=== PATIENT | male | born 1945 | race Caucasian/White ===

== ENCOUNTER → 2017-03-19 | Outpatient (CLI) | payer MEDICARE ==
[~2017-03-19] MED LIST: ASPI-515 PO; CHOL100012 PO; METF850T2 PO; MULT-516 PO; PRAV20TA2 PO
== END | disposition home or self-care (01) ==
LOC: RAD 15:49
PROVIDERS: ATTEND Urology
DX: K59.00 Constipation, unspecified (principal)
CPT/HCPCS: 74000

== ENCOUNTER → 2017-10-22 | Outpatient (CLI) | payer MEDICARE | END | disposition home or self-care (01) | LOC: RAD 10:12 | PROVIDERS: ATTEND Urology | DX: N20.0 Calculus of kidney (principal) | CPT/HCPCS: 74018 ==

== ENCOUNTER → 2018-08-24 | Outpatient (CLI) | payer MEDICARE ==
[~2018-08-24] MED LIST changes: +METF850T10 PO; -METF850T2 PO
== END | disposition home or self-care (01) ==
LOC: CFH 13:56
PROVIDERS: ATTEND Internal Medicine Cardiovascular Disease
DX: I08.1 Rheumatic disorders of both mitral and tricuspid valves (principal); E78.5 Hyperlipidemia, unspecified; I12.9 Hypertensive chronic kidney disease with stage 1 through stage 4 chronic kidney disease, or unspecified chronic kidney disease; E11.22 Type 2 diabetes mellitus with diabetic chronic kidney disease; N18.9 Chronic kidney disease, unspecified
CPT/HCPCS: 93306

== ENCOUNTER 2019-04-16 07:02 | Outpatient (CLI) | payer MEDICARE ==
[2019-04-16] MEDS ORDERED: REGADENOSON 0.4 MG/5 ML SYRINGE ONE (07:26)
== END 2019-04-16 23:59 | disposition home or self-care (01) ==
LOC: CFH 07:02
PROVIDERS: ATTEND Registered Nurse
DX: I08.8 Other rheumatic multiple valve diseases (principal); E11.9 Type 2 diabetes mellitus without complications
CPT/HCPCS: 78452; 93017; 93306; A9502; J2785

== ENCOUNTER 2019-06-25 08:27 | Day surgery (SDC) | payer MEDICARE ==
[~2019-06-25] VITALS: Ht 179.1 cm; Wt 75.0 kg
[2019-06-25 09:32] VITALS: BP 128/73
[2019-06-25] MEDS ORDERED: SITA25TA PO (09:41)
[2019-06-25] MEDS ORDERED: IRON1TAB60 PO (09:41)
[2019-06-25] MEDS ORDERED: PHOSPHATE BINDER PO (09:43)
[2019-06-25 09:49] LABS: BASOPHILS # (AUTO) 0.02 x10^3/uL (0-0.1); BASOPHILS % (AUTO) 0 % (0-1); EOSINOPHILS # (AUTO) 0.36 x10^3/uL (0-0.4); EOSINOPHILS % (AUTO) 6 % (1-7); LYMPHOCYTES # (AUTO) 1.11 x10^3/uL (1-3.4); LYMPHOCYTES % (AUTO) 19 % (22-44); MD NO; MEAN CORPUSCULAR HEMOGLOBIN 33.4 pg (27.5-34.5); MEAN CORPUSCULAR HGB CONC 33.4 g/dL (33.2-36.2); MEAN CORPUSCULAR VOLUME 99.9 fL (81-97); MONOCYTES # (AUTO) 0.95 x10^3/uL (0.2-0.8); MONOCYTES % (AUTO) 16 % (2-9); NEUTROPHILS # (AUTO) 3.48 x10^3/uL (1.8-6.8); NEUTROPHILS % (AUTO) 59 % (42-75); PLATELET COUNT 230 x10^3/uL (130-400); RED BLOOD COUNT 3.35 x10^6/uL (4.38-5.82); RED CELL DISTRIBUTION WIDTH 14.2 % (9.4-14.8)
[2019-06-25 09:51] LABS: ANION GAP 9 mmol/L (5-15); CALCIUM 9.8 mg/dL (8.5-10.1); CHLORIDE 103 mmol/L (98-107); CREATININE 5.96 mg/dL (0.7-1.3)
[2019-06-25] MEDS ORDERED: FENTANYL PF 100 MCG/2ML ONE (10:35)
[2019-06-25] MEDS ORDERED: MIDAZOLAM 1 MG/ML, 2ML ONE (10:35)
[2019-06-25] MEDS ORDERED: BIVALIRUDIN 250 MG ONE (10:35)
[2019-06-25] MEDS ORDERED: VERAPAMIL 2.5 MG/ML, 2ML ONE (10:35)
[2019-06-25] MEDS ORDERED: HEPARIN 1,000 UNITS/ML, 10ML ONE (10:35)
[2019-06-25] MEDS ORDERED: LIDOCAINE-MPF 1%, 5ML ONE (10:35)
[2019-06-25] MEDS ORDERED: ACETAMINOPHEN 325 MG TABLET ONE (14:02)
== END 2019-06-25 14:42 | disposition home or self-care (01) ==
LOC: CACL 08:27
PROVIDERS: ATTEND Internal Medicine Cardiovascular Disease
DX: Z01.818 Encounter for other preprocedural examination (principal); I25.10 Atherosclerotic heart disease of native coronary artery without angina pectoris; E11.22 Type 2 diabetes mellitus with diabetic chronic kidney disease; N18.6 End stage renal disease; D63.1 Anemia in chronic kidney disease; I95.9 Hypotension, unspecified; Z99.2 Dependence on renal dialysis; Z79.82 Long term (current) use of aspirin; Z79.899 Other long term (current) drug therapy
CPT/HCPCS: 36415; 80048; 85025; 93458; C1769; C1894; J1644; J2250; J3010; Q9967; 99156; J0583